=== PATIENT | female | born 1955 | race Native Hawaiian/Other Pacific Islander ===

== ENCOUNTER 2016-10-24 20:14 | Outpatient (CLI) | payer OTHER ==
[2016-10-25] MEDS ORDERED: SYMBICORT1 AE1 IN (02:31)
[2016-10-25] MEDS ORDERED: PROVENTIL IN (02:31)
[2016-10-25] MEDS ORDERED: SIMV40TA57 (02:32)
[2016-10-25] MEDS ORDERED: FURO20TA67 PO (02:32)
[2016-10-25] MEDS ORDERED: XANAX XR1 MG OR (02:33)
[2016-10-25] MEDS ORDERED: MONT10TA PO (02:34)
[2016-10-25] MEDS ORDERED: LOSA50TA PO (02:34)
[2016-10-25] MEDS ORDERED: HYDR10TA47 PO (02:34)
[2016-10-25] MEDS ORDERED: ONDA4TAB3 PO (02:35)
[2016-10-25] MEDS ORDERED: SPIR50TA8 PO (02:36)
[2016-10-25] MEDS ORDERED: MOBIC15 MG PO (02:36)
[2016-10-25] MEDS ORDERED: CELEXA40 MG PO (02:37)
[2016-10-25] MEDS ORDERED: MECLIZINE25 MG OR (02:37)
[2016-10-25] MEDS ORDERED: OMEP40CA PO (02:38)
[2016-10-25] MEDS ORDERED: FERROUS SULF140 MG OR (02:38)
[2016-10-25] MEDS ORDERED: TOVIAZ8 MG OR (02:39)
[2016-10-25] MEDS ORDERED: FURO40TA93 PO (14:27)
[2016-10-25] MEDS ORDERED: LYRICA100 MG PO (14:28)
[2016-10-25] MEDS ORDERED: FLUC150T PO (14:29)
[2016-10-25] MEDS ORDERED: ISOS30TA17 PO (14:30)
== END 2016-10-24 20:33 | disposition short-term general hospital (02) ==
LOC: AMB 20:14
DX: M25.511 Pain in right shoulder (principal); S41.112A Laceration without foreign body of left upper arm, initial encounter; S41.111A Laceration without foreign body of right upper arm, initial encounter; R55 Syncope and collapse; W17.89XA Other fall from one level to another, initial encounter; Y92.098 Other place in other non-institutional residence as the place of occurrence of the external cause
CPT/HCPCS: A0425; A0427

== ENCOUNTER 2016-10-24 20:35 | Inpatient (IN) | payer OTHER ==
[~2016-10-24] VITALS: Ht 157.5 cm; Wt 119.7 kg
[2016-10-24 20:35] VITALS: BP 151/67; TEMP 97.8
[2016-10-24 21:29] LABS: PLATELET COUNT 241 K/uL (152-353)
[2016-10-24 21:39] LABS: POTASSIUM 3.5 mmol/L (3.6-5.2)
[2016-10-25 01:43] VITALS: BP 148/59; TEMP 99.5; Ht 157.5 cm; Wt 119.7 kg
[2016-10-25] MEDS ORDERED: PROVENTIL IN (02:31)
[2016-10-25] MEDS ORDERED: SYMBICORT1 AE1 IN (02:31)
[2016-10-25] MEDS ORDERED: SIMV40TA57 (02:32)
[2016-10-25] MEDS ORDERED: FURO20TA67 PO (02:32)
[2016-10-25] MEDS ORDERED: XANAX XR1 MG OR (02:33)
[2016-10-25] MEDS ORDERED: LOSA50TA PO (02:34)
[2016-10-25] MEDS ORDERED: HYDR10TA47 PO (02:34)
[2016-10-25] MEDS ORDERED: MONT10TA PO (02:34)
[2016-10-25] MEDS ORDERED: ONDA4TAB3 PO (02:35)
[2016-10-25] MEDS ORDERED: MOBIC15 MG PO (02:36)
[2016-10-25] MEDS ORDERED: SPIR50TA8 PO (02:36)
[2016-10-25] MEDS ORDERED: CELEXA40 MG PO (02:37)
[2016-10-25] MEDS ORDERED: MECLIZINE25 MG OR (02:37)
[2016-10-25] MEDS ORDERED: FERROUS SULF140 MG OR (02:38)
[2016-10-25] MEDS ORDERED: OMEP40CA PO (02:38)
[2016-10-25] MEDS ORDERED: TOVIAZ8 MG OR (02:39)
[2016-10-25 08:17] VITALS: BP 154/68; TEMP 97.9
[2016-10-25 10:58] LABS: PLATELET COUNT 245 K/uL (152-353)
[2016-10-25 12:00] VITALS: BP 147/59; TEMP 98
[2016-10-25 12:25] LABS: POTASSIUM 3.4 mmol/L (3.6-5.2)
[2016-10-25] MEDS ORDERED: FURO40TA93 PO (14:27)
[2016-10-25] MEDS ORDERED: LYRICA100 MG PO (14:28)
[2016-10-25] MEDS ORDERED: FLUC150T PO (14:29)
[2016-10-25] MEDS ORDERED: ISOS30TA17 PO (14:30)
[2016-10-25 16:00] VITALS: BP 155/62; TEMP 97.8
[2016-10-25 19:53] LABS: POTASSIUM 3.3 mmol/L (3.6-5.2)
[2016-10-25 20:28] VITALS: BP 135/70; TEMP 99.2
[2016-10-26] VITALS: BP 135/82; TEMP 98.7
[2016-10-26 04:00] VITALS: BP 158/59; TEMP 97.9
[2016-10-26 07:24] LABS: PLATELET COUNT 223 K/uL (152-353)
[2016-10-26 07:31] LABS: POTASSIUM 3.3 mmol/L (3.6-5.2)
[2016-10-26 08:00] VITALS: BP 144/64; TEMP 97.9
[2016-10-26 12:00] VITALS: BP 133/64; TEMP 98
[2016-10-26 16:00] VITALS: BP 153/70; TEMP 97.6
[2016-10-26 20:00] VITALS: BP 126/44; TEMP 98.8
[2016-10-27] VITALS: BP 141/68; TEMP 98.1
[2016-10-27 04:00] VITALS: BP 145/43; TEMP 98.1
[2016-10-27 06:51] LABS: POTASSIUM 3.3 mmol/L (3.6-5.2)
[2016-10-27 07:16] LABS: PLATELET COUNT 179 K/uL (152-353)
[2016-10-27 08:00] VITALS: BP 144/66; TEMP 98.3
[2016-10-27 12:00] VITALS: BP 140/62; TEMP 98
[2016-10-27 16:00] VITALS: BP 129/52; TEMP 98.6
[2016-10-27 20:00] VITALS: BP 125/48; TEMP 98.4
[2016-10-28] VITALS: BP 154/58; TEMP 98.1
[2016-10-28 04:00] VITALS: BP 177/68; TEMP 98.3
[2016-10-28 06:20] LABS: POTASSIUM 4.1 mmol/L (3.6-5.2)
[2016-10-28 07:00] LABS: PLATELET COUNT 200 K/uL (152-353)
[2016-10-28 08:21] VITALS: BP 151/54; TEMP 98.3
[2016-10-28 12:00] VITALS: BP 123/63; TEMP 98.2
== END 2016-10-28 17:05 | disposition home or self-care (01) | DRG 872 ==
LOC: EDBD 20:35 → ED 20:35 → MED/SURG 10-25 00:40
PROVIDERS: Emergency Medicine
DX: A41.89 Other specified sepsis (principal); N39.0 Urinary tract infection, site not specified; E87.1 Hypo-osmolality and hyponatremia; E83.42 Hypomagnesemia; S42.391A Other fracture of shaft of right humerus, initial encounter for closed fracture; R56.9 Unspecified convulsions; B96.20 Unspecified Escherichia coli [E. coli] as the cause of diseases classified elsewhere
CPT/HCPCS: 36415; 36416; 51702; 80048; 80053; 80307; 81000; 82948; 83605; 83735; 85027; 87040; 87077; 87086; 87088; 87186; 93005; 94760; 96365; 96366; 96372; 96375; 99285; G0479; J0696; J0744; J1650; J1885; J2175; J2405; J3490; Q2009

== ENCOUNTER 2018-12-13 13:28 | Outpatient (CLI) | payer OTHER ==
[~2018-12-13 13:28] MED LIST: CELEXA40 MG PO; FERROUS SULF140 MG OR; FLUC150T PO; FURO20TA67 PO; FURO40TA93 PO; HYDR10TA47 PO; ISOS30TA17 PO; LOSA50TA PO; LYRICA100 MG PO; MECLIZINE25 MG OR; MOBIC15 MG PO; MONT10TA PO; OMEP40CA PO; ONDA4TAB3 PO; PROVENTIL IN; SIMV40TA57; SPIR50TA8 PO; SYMBICORT1 AE1 IN; TOVIAZ8 MG OR; XANAX XR1 MG OR
[2018-12-13 13:45] LABS: POTASSIUM 5.2 mmol/L (3.6-5.2)
== END 2018-12-13 20:08 | disposition home or self-care (01) ==
LOC: LAB 13:28
PROVIDERS: Internal Medicine
DX: E87.1 Hypo-osmolality and hyponatremia (principal)
CPT/HCPCS: 80053

== ENCOUNTER 2019-01-31 12:44 | Outpatient (CLI) | payer OTHER ==
[2019-01-31 13:22] LABS: PLATELET COUNT 226 K/uL (152-353)
[2019-01-31 13:37] LABS: POTASSIUM 4.8 mmol/L (3.6-5.2)
== END 2019-01-31 23:27 | disposition home or self-care (01) ==
LOC: LAB 12:44
PROVIDERS: Internal Medicine
DX: I10 Essential (primary) hypertension (principal); Z79.899 Other long term (current) drug therapy; E78.2 Mixed hyperlipidemia; E11.9 Type 2 diabetes mellitus without complications; D51.8 Other vitamin B12 deficiency anemias; E55.9 Vitamin D deficiency, unspecified
CPT/HCPCS: 80053; 80061; 81000; 82043; 82306; 82570; 82607; 83036; 85027

== ENCOUNTER 2019-03-07 10:43 | Outpatient (CLI) | payer OTHER ==
[2019-03-07 10:57] LABS: PLATELET COUNT 152 K/uL (152-353)
[2019-03-07 11:11] LABS: POTASSIUM 5.2 mmol/L (3.6-5.2)
== END 2019-03-07 19:32 | disposition home or self-care (01) ==
LOC: LAB 10:43
PROVIDERS: Obstetrics & Gynecology Gynecologic Oncology
DX: D07.1 Carcinoma in situ of vulva (principal); E87.1 Hypo-osmolality and hyponatremia
CPT/HCPCS: 80053; 85027

== ENCOUNTER 2019-03-22 09:23 | Outpatient (CLI) | payer OTHER | END 2019-03-22 22:35 | disposition home or self-care (01) | LOC: NM 09:23 | DX: R07.89 Other chest pain (principal); R01.1 Cardiac murmur, unspecified; R09.89 Other specified symptoms and signs involving the circulatory and respiratory systems | CPT/HCPCS: 93306; A9500; J2785 ==

== ENCOUNTER 2019-05-14 10:30 | Outpatient (CLI) | payer OTHER ==
[2019-05-14 10:52] LABS: POTASSIUM 4.3 mmol/L (3.6-5.2)
== END 2019-05-14 19:57 | disposition home or self-care (01) ==
LOC: LAB 10:30
PROVIDERS: Internal Medicine
DX: J44.1 Chronic obstructive pulmonary disease with (acute) exacerbation (principal); R06.02 Shortness of breath
CPT/HCPCS: 80048

== ENCOUNTER 2019-05-21 11:35 | Outpatient (CLI) | payer OTHER ==
[2019-05-21 12:27] LABS: POTASSIUM 4.3 mmol/L (3.6-5.2)
== END 2019-05-21 20:25 | disposition home or self-care (01) ==
LOC: LAB 11:35
PROVIDERS: Internal Medicine Cardiovascular Disease
DX: J44.1 Chronic obstructive pulmonary disease with (acute) exacerbation (principal); I11.0 Hypertensive heart disease with heart failure; I50.32 Chronic diastolic (congestive) heart failure; R06.09 Other forms of dyspnea; Z79.899 Other long term (current) drug therapy
CPT/HCPCS: 80048; 83880

== ENCOUNTER 2019-07-31 10:38 | Outpatient (CLI) | payer OTHER ==
[2019-07-31 10:58] LABS: PLATELET COUNT 304 K/uL (152-353)
[2019-07-31 11:47] LABS: POTASSIUM 4.7 mmol/L (3.6-5.2)
== END 2019-07-31 17:00 | disposition home or self-care (01) ==
LOC: LAB 10:38
PROVIDERS: Internal Medicine
DX: E78.2 Mixed hyperlipidemia (principal); E11.9 Type 2 diabetes mellitus without complications; Z79.899 Other long term (current) drug therapy; E55.9 Vitamin D deficiency, unspecified
CPT/HCPCS: 80053; 80061; 81000; 82043; 82306; 82570; 83036; 84439; 84443; 85027

== ENCOUNTER 2022-07-22 14:31 | Outpatient (CLI) | payer OTHER | END 2022-07-22 18:53 | disposition home or self-care (01) | LOC: LAB 14:31 | PROVIDERS: ATTEND Nurse Practitioner Family | DX: S41.002A Unspecified open wound of left shoulder, initial encounter (principal); Y92.89 Other specified places as the place of occurrence of the external cause | CPT/HCPCS: 87070; 87077; 87185; 87186; 87205 ==

== ENCOUNTER 2022-11-04 10:43 | Outpatient (CLI) | payer OTHER ==
[2022-11-04 10:58] LABS: PLATELET COUNT 232 K/uL (152-353)
[2022-11-04 11:24] LABS: POTASSIUM 4.9 mmol/L (3.6-5.2)
== END 2022-11-04 20:50 | disposition home or self-care (01) ==
LOC: LAB 10:43
PROVIDERS: ATTEND Nurse Practitioner Family
DX: E78.2 Mixed hyperlipidemia (principal); Z79.899 Other long term (current) drug therapy; I10 Essential (primary) hypertension; E11.9 Type 2 diabetes mellitus without complications; E55.9 Vitamin D deficiency, unspecified
CPT/HCPCS: 80053; 80061; 81002; 82043; 82306; 82570; 82607; 83036; 83735; 84439; 84443; 85027